=== PATIENT | male | born 1960 | race African-American/Black ===

== ENCOUNTER 2025-06-23 20:49 | Emergency (ER) | payer OTHER, SELFPAY ==
[2025-06-23 21:00] VITALS: BP 184/114
[2025-06-23 22:00] VITALS: BP 170/101
[2025-06-23 23:10] VITALS: BP 174/107
[2025-06-23 23:35] LABS: Hematocrit 37.0 % (39.0-52.0); Hemoglobin 12.4 g/dL (13.0-18.0); Mean Corp Hgb Conc. 33.5 g/dL (33.0-37.0); Mean Corpuscular Volume 90.7 fL (80.0-94.0); Nucleated Red Blood Cells % 0 % (-); Platelet Count 333 10^3/uL (130-400); Red Cell Dist. Width 12.6 % (11.5-14.5)
[2025-06-23 23:52] LABS: ALT (SGPT) 22 U/L (0-50); AST (SGOT) 33 U/L (17-59); Albumin 4.2 g/dl (3.5-5.0); Alkaline Phosphatase 42 U/L (38-126); Blood Urea Nitrogen 13 mg/dl (9-20); Calcium 9.8 mg/dl (8.4-10.2); Carbon Dioxide 28 mmol/L (22-30); Chloride 102 mmol/L (98-107); Glucose 75 mg/dl (70-99); Potassium 3.7 mmol/L (3.5-5.1); Sodium 136 mmol/L (135-145); Total Protein 7.7 g/dl (6.3-8.2); eGFR > 60.00
[2025-06-23 23:53] LABS: Urine Character Clear (Clear)
--- NOTE | 2025-06-23 23:54 | ED.GENMED ---
History of Present Illness
General
Chief Complaint: Change in Mental Status
Source: patient
Exam Limitations: none
Time Seen by Provider: 06/23/25 22:58
Nursing documentation reviewed up to this point in time: agreed with
History of Present Illness
History of Present Illness:
Note:
CHIEF COMPLAINT(S)
Confusion.
HISTORY OF PRESENT ILLNESS
The patient is a 64-year-old male with pmh of htn, alcohol use disorder, presents to the ER today from [facility] with concerns of confusion via staff. He has been at [facility] for two days and staff believed that he appeared
confused today. They did not elaborate on specific details regarding this and it appears to be a non-specific confusion. I spoke to ED nurse who reports that EMS was not able to elaborate on the specifics of the confusion. Initially, the first ED
nurse who took care of him reported that he was confused at what she was saying and was not able to answer her questions or comprehend what she was saying. Patient is upset and states that the skilled nursing guards took his personal belongings. He is
getting frustrated during the interview and states that he is very hard of hearing and in one ear. He is unsure as to why he was sent to the hospital. After writing questions down for better understanding, patient appears calmer and appears to
understand my questions and with clear speech. He denies chest pain, shortness of breath, headache, dizziness, lightheadedness, weakness on one side of the body vs the other, visual changes, abdominal pain. [facility] guards accompanying patient are
unsure as to why patient was sent in today.
REVIEW OF SYSTEMS
- Neurological: Confusion
PHYSICAL EXAM
General: Alert and awake, well appearing, in no acute distress
Skin: Warm, dry.
Head: Normocephalic, atraumatic.
Neck: Supple, trachea midline.
Eye Ears, nose, mouth and throat: Oral mucosa moist. Poor dentition. Missing teeth. No intra-oral lesions.
Cardiovascular: Regular rate and rhythm, no murmurs. Normal peripheral perfusion, No edema.
Respiratory: Respirations are non-labored. No wheezes, rales, or rhonchi.
Gastrointestinal: Non-distended, non-tender to palpation.
Musculoskeletal: 5/5 strength in b/l upper and lower extremities.
Neurological: CN II-XII intact. No focal deficit. AAOx3. No resting tremor observed.
Psychiatric: Cooperative, normal affect. Disorganized speech.
PLAN
-CBC, CMP
-Vitamin B12, folate
-Urinalysis
-Urine drug screen
-CT of the head
DIFFERENTIAL DIAGNOSIS
The Differential Diagnosis includes, in no particular order and is not limited to:
1. Delirium
2. Dementia
3. Stroke
4. Transient ischemic attack
5. Urinary tract infection
6. Dehydration
7. Electrolyte imbalance
8. Hypoglycemia
9. Medication side effects
10. Acute kidney injury
LABS
Mild anemia normal however normal MCV, normal B12 and folate
CMP unremarkable, no signs of electrolyte derangement
SCORES
CIWA score of 0
ECG
ECG shows sinus bradycardia rate of 59 with concave J point elevation in multiple leads suggesting possible benign early repolarization
Possible LVH
Patient has no chest pain at this time
CHART REVIEW
No prior ER physician documentation or hospital discharge summary to review
UPDATE
Patient had an episode where he attempted to wrap ecg leads around his neck.
He was evaluated by crisis
Recommendations were made to the skilled nursing for suicide precautions

Patient becomes agitated if you ask him too many questions and asks to be left alone
When attempting to evaluate blood pressure, patient attempts to hit staff on multiple blood pressure events, patient yelling during final blood pressure attempt, will forgo repeat blood pressure checks to ensure staff safety
MDM/DISPOSITION
The patient is a 64-year-old male with pmh of htn, alcohol use disorder, presents to the ER today from [facility] with concerns of generalized non-specific confusion. He has been at [facility] for two days and staff believed that
he appeared confused today. Patient reports that he is deaf.
He denies chest pain, shortness of breath, fevers, chills, abdominal pain, nausea or vomiting. He denies headaches. He denies numbness or tingling in his extremities or weakness. He repeatedly requests to be released from his handcuffs and expresses
frustration regarding his situation.
On my assessment, patient has trouble comprehending my speech and is not able to always hear me. Some questions I have to write down. He is able to read my questions and comprehend them. He is oriented times 3 and understands he is being assessed in
a hospital. He does have a history of alcohol use disorder but comes from skilled nursing and has been on clonezapam daily. Today, he has no signs of acute alcohol withdrawal or delirium tremens.
Labs reviewed, no signs of electrolyte derangement or any other abnormalities to explain any confusion or altered mental status. He does take vitamin b12 and folate and I did check these levels which were normal today. His urinalysis does not show
any signs of infection or illicit drug use. CT scan of the head shows chronic small vessel ischemia but no acute disease.
I discussed with skilled nursing guards to ensure that the health center at the skilled nursing views my paperwork to ensure continued blood pressure checks and to follow up on chronic CT findings. I did want to continue to monitor patient's blood pressure however
when continued attempts are made he starts yelling and demands his hand cuffs to be removed.
I suspect episode of confusion at the longterm and earlier in the ER likely short episode of acute delirium with environmental cause rather than acute medical cause, secondary to severe hearing loss in the setting of a new and unfamiliar living
environment of the skilled nursing.
Underlying psychiatric illness may play a role as well.
Discussed with ED attending.
Patient stable for discharge.
Phy Exam
Physical Exam
Physical Exam:
see hpi
Course
Orders/Labs/Results
Orders:
Orders
06/23/25 20:57
Electrocardiogram (*1) Urgent
Reason for Study: Other
Other Reason for Exam: Possible Sepsis
EKG- Treatment ONCE
06/23/25 23:13
CT Head W/o Iv Contrast Urgent
Comment:
Reason For Exam: altered mental status
06/23/25 23:23
Alcohol Urgent
Complete Blood Count/With Diff Urgent
Comprehensive Metabolic Panel Urgent
Folate Urgent
Vitamin B12 Urgent
06/23/25 23:30
Crisis Consult Urgent
Reason for Consult: pt ripped off cardiac leads and put them around his neck
Comment: pt is extremely hard of hearing
06/23/25 23:31
Urinalysis Reflex To Culture Urgent
Date Specimen was Collected: 06/23/25
Time Specimen was Collected: 23:30
Urine Drug Abuse Screen Urgent
Date Specimen was Collected: 06/23/25
Time Specimen was Collected: 23:30
Urine Microscopic Reflex Cult Urgent
Abnormal Lab Results
06/23/25 06/23/25
23:23 23:31
RBC 4.08 L 10^6/uL
(4.70-6.10)
Hgb 12.4 L g/dL
(13.0-18.0)
Hct 37.0 L %
(39.0-52.0)
Urine Albumin (Reflex) 1+ A
(Neg - Trace)
06/23/25 23:23
06/23/25 23:23
Vital Signs
Initial and Last Documented VS:
Initial Vital Signs
Resp
22
06/23/25 20:58
Last Documented Vital Signs
Temp Pulse Resp BP Pulse Ox
98.0 F 66 14 184/100 98
06/23/25 21:08 06/24/25 00:50 06/24/25 00:50 06/24/25 01:12 06/24/25 00:50
*Pulse Oximetry
SaO2: 99
Oxygen Mode of Delivery: Room air
Patient hypoxic: no
*Critical Care Note
Total Time (30-74mins, 75-104mins- exclusive of procedures): Not Applicable
ED Attending Note
-
Portions of this chart may have been created with voice recognition software.� Occasional wrong word or��sound alike� substitutions may have occurred due to the inherent limitations of voice recognition software.
Discharge Plan
Departure
Patient Disposition: Home (Routine Discharge)
Date of Disposition: 06/24/25
Time of Disposition: 01:00
Patient with high blood pressure during this ER visit?: Yes
Condition: Good
Discharge Problem:
Delirium, [place] (hard of hearing)
Instructions: Delirium (confusion), BLOOD PRESSURE
Referrals:
[facility] [Family Provider, General]
Activity Restrictions/Additional Instructions:
As discussed, your CBC is unremarkable. There is mild anemia noted. Please continue to take your vitamins.
Your blood pressure was elevated today. I highly recommend that he continue blood pressure checks and is considered to be started on an antihypertensive medication. He should also be on suicide precautions.
Patient is medically stable for incarceration.
Your CAT scan showed no acute changes but did show evidence of chronic vascular ischemic changes which should be followed up with with primary care provider.
PLEASE RETURN SHOULD YOU DEVELOP INABILITY TO SPEAK, SEIZURE-LIKE ACTIVITY, CHEST PAIN, SHORTNESS OF BREATH, INTRACTABLE NAUSEA OR VOMITING, TREMORS, OR ANY OTHER SIGNS OR SYMPTOMS WORRISOME TO YOU.
Interventions
Interventions:
*Risk Screen - Suicide Last Done: 06/23/25 21:20
*General Assessment Last Done: 06/23/25 21:20
*Neglect/Abuse Screening Last Done: 06/23/25 21:20
*ED- Fall Risk Assessment Last Done: 06/23/25 23:35
*ED COVID-19 Vaccine History Last Done: 06/23/25 21:20
*ED Influenza Vaccine History Last Done: 06/23/25 21:20
*Nursing Disposition Last Done: 06/24/25 01:25
ED- Pulmonary Assessment Last Done: 06/23/25 23:10
ED-Psychological Assessment Last Done: 06/24/25 01:25
ED- Neurological Assessment Last Done: 06/23/25 23:10
ED- Cardiac Assessment Last Done: 06/23/25 23:10
ED Swallowing Screen Last Done: 06/23/25 23:42
Discharge Date and Time
Discharge Date/Time: 06/24/25 01:25
Print Language: [id number]
[2025-06-24 00:01] LABS: Urine Squamous Cell 0-2 /LPF (Few)
[2025-06-24 00:02] LABS: Urine Red Blood Cell 0-2 /HPF (0-2); Urine White Cell 0-2 /HPF (0-5)
[2025-06-24 00:50] VITALS: BP 184/100
[2025-06-24 00:57] LABS: Folate 15.1 ng/ml (2.76-20); Vitamin B12 433 pg/ml (239-931)
[2025-06-24 01:12] VITALS: BP 184/100
== END 2025-06-24 01:25 | disposition home or self-care (01) ==
LOC: EMR 20:49
PROVIDERS: Physician Assistant; EMERGENCY PHYSICIAN Student in an Organized Health Care Education/Training Program
DX: R41.0 Disorientation, unspecified (principal); H91.90 Unspecified hearing loss, unspecified ear; I10 Essential (primary) hypertension
CPT/HCPCS: 99284; 70450; 80053; 80306; 81003; 81015; 82077; 82607; 82746; 85025; 93005